=== PATIENT | female | born 1975 | race Caucasian/White ===

== ENCOUNTER → 2018-01-09 | Outpatient (CLI) | payer BC ==
--- NOTE | 2018-01-12 08:22 | MM ---
Reason for exam: screening (asymptomatic). Last mammogram was performed 1 year and 9 months ago. Physical Findings: A clinical breast exam by your physician is recommended on an annual basis and results should be correlated with mammographic findings. MG Screening Mammo w CAD Bilateral CC and MLO view(s) were taken. Prior study comparison: April 19, 2016, bilateral MG screening mammo w CAD. July 29, 2014, bilateral MG screening mammo w CAD. The breast tissue is heterogeneously dense. This may lower the sensitivity of mammography. Finding: There are typically benign round, regional calcifications in the right breast. There is no discrete abnormality. ASSESSMENT: Benign, BI-RAD 2 RECOMMENDATION: Routine screening mammogram of both breasts in 1 year.
== END | disposition home or self-care (01) ==
LOC: RADMAMWWP 08:57
PROVIDERS: ATTEND Obstetrics & Gynecology
DX: Z12.31 Encounter for screening mammogram for malignant neoplasm of breast (principal)
CPT/HCPCS: 77067

== ENCOUNTER → 2019-03-03 | Outpatient (CLI) | payer BC ==
--- NOTE | 2019-03-05 08:25 | MM ---
Reason for exam: screening (asymptomatic). Last mammogram was performed 1 year and 2 months ago. Physical Findings: A clinical breast exam by your physician is recommended on an annual basis and results should be correlated with mammographic findings. MG Screening Mammo w CAD Bilateral CC and MLO view(s) were taken. Prior study comparison: January 09, 2018, bilateral MG screening mammo w CAD. April 19, 2016, bilateral MG screening mammo w CAD. The breast tissue is heterogeneously dense. This may lower the sensitivity of mammography. Regional punctate calcifications persist in the subareolar regions. No significant changes when compared with prior studies. ASSESSMENT: Benign, BI-RAD 2 RECOMMENDATION: Routine screening mammogram of both breasts in 1 year.
== END | disposition home or self-care (01) ==
LOC: RADMAMWWP 13:34
PROVIDERS: ATTEND Obstetrics & Gynecology
DX: Z12.31 Encounter for screening mammogram for malignant neoplasm of breast (principal)
CPT/HCPCS: 77067

== ENCOUNTER → 2020-10-12 | Outpatient (CLI) | payer BC ==
--- NOTE | 2020-10-12 13:12 | CT ---
EXAMINATION TYPE: CT shoulder LT wo con DATE OF EXAM: 10/12/2020 COMPARISON: None. HISTORY: Left shoulder pain. Displaced fracture greater tuberosity minimally. CT DLP: 396.4 mGycmCT left shoulder without contrast. Automated exposure control for dose reduction was used. FINDINGS: Acute comminuted minimally displaced fracture through the femoral head is confirmed with fracture moriah e involving the greater tuberosity. No significant displacement or abnormal angulation. Glenohumeral joint is maintained. Acromioclavicular joint both within normal limits. Distal acromion morphology unremarkable. Rotator cuff muscle bulk preserved. Visualized ribs are intact. Visualized left lung is clear. IMPRESSION: As above.
== END | disposition home or self-care (01) ==
LOC: RADCTMAIN 11:39
PROVIDERS: ATTEND Orthopaedic Surgery
DX: S72.052A Unspecified fracture of head of left femur, initial encounter for closed fracture (principal)

== ENCOUNTER 2022-05-29 12:15 | Emergency (ER) | payer BC ==
[2022-05-29 12:19] VITALS: TEMP 97.9
[2022-05-29] MEDS ORDERED: FAMOTIDINE 20 MG TAB PO STA (12:51)
[2022-05-29] MEDS ORDERED: methylPREDNISolone SOD SUCCI 125 MG/2 ML VIAL IM ONE (12:51)
[2022-05-29 13:18] LABS: Glucose,Whole Blood 91 mg/dL (70-110)
--- NOTE | 2022-05-29 13:38 | ED ---
General Adult HPI - General Chief complaint: Allergic Reaction Stated complaint: Face swelling Time Seen by Provider: 05/29/22 12:20 Source: patient, RN notes reviewed, old records reviewed Mode of arrival: ambulatory Limitations: no limitations - History of Present Illness Initial comments: Patient is a 46-year-old female with past medical history that is unremarkable presents emergency Department complaining of a mild ALLERGIC reaction. At approximately 7 AM this morning, patient began having swelling on the left side of her mouth. Occurred in both lips. Uncertain what caused it. Took 2 Benadryl. Swelling improved. Denies any difficulty swallowing or breathing. Denies stridor. She states she was having some "tingling" sensation isolated to the left side of her face since the Benadryl was taken and the swelling has gone down. Was sent here by her physician for further evaluation. Denies any weakness. Denies any other acute complaints. Takes no medications. Does not take any MESHA inhibitor's. Swelling is improved.Patient is concerned for possible stroke. Was sent here for CT brain. - Related Data Allergies Allergy/AdvReac Type Severity Reaction Status Date / Time acetaminophen [From Lortab] Allergy Chest Pain Verified 05/29/22 12:19 hydrocodone [From Lortab] Allergy Chest Pain Verified 05/29/22 12:19 Review of Systems ROS Statement: Those systems with pertinent positive or pertinent negative responses have been documented in the HPI. Review of Systems: CONST: Denies fever EYES: Denies blurry vision ENT: Denies nasal congestion C/V: Denies Chest pain RESP: Denies shortness of breath GI: Denies abdominal pain : Denies dysuria SKIN: Denies rash. MSK: Denies joint pain. NEURO: Denies headache ROS Other: All systems not noted in ROS Statement are negative. Past Medical History Past Medical History: Asthma History of Any Multi-Drug Resistant Organisms: None Reported Past Surgical History: Tonsillectomy Additional Past Surgical History / Comment(s): Tubal, Past Psychological History: No Psychological Hx Reported Smoking Status: Never smoker Past Alcohol Use History: None Reported Past Drug Use History: None Reported General Exam - General Exam Comments Initial Comments: General: Appears in no acute distress. HEAD: Normal with no signs of head trauma. EYES: PERRLA, EOMI, conjunctiva normal, no discharge. Pupils are 3 mm and equal bilaterally. ENT: Hearing grossly intact, normal oropharynx. No stridor. RESPIRATORY: Clear breath sounds bilaterally. No wheezes, rales, or rhonchi. C/V: Regular rate and rhythm. S1 and S2 auscultated, no edema, peripheral pulses 2+ and intact throughout ABD: Abd is soft, nontender, nondistended EXT: Normal range of motion, no obvious deformity SKIN: No rashes or lesions observed on exposed skin. No facial swelling. NEURO: Alert and oriented x 4. Cranial nerves II-XII intact. No focal sensory or strength deficits. NIH is 0. GCS of 15. Ambulatory without difficulty. Limitations: no limitations Course Vital Signs 05/29/22 05/29/22 12:16 15:11 Temperature 97.9 F Pulse Rate 74 91 Respiratory 20 15 Rate Blood Pressure 149/69 125/77 O2 Sat by Pulse 100 99 Oximetry Medical Decision Making - Medical Decision Making Based on the patient's presentation and physical exam, I do believe she likely experiencing a mild ALLERGIC reaction earlier which has since resolved. However I did offer her famotidine and steroids which she accepted. As for the patient's neurological complaints, NIH is 0. She has subjective paresthesias over the left face. No other complaints. Discussed the unlikelihood of her having a stroke. However she was sent for likely CT brain by her PCP. We will obtain a CT brain I do not believe that she requires any further workup at this time. We will also obtain a primary care blood glucose. Patient was in agreement this plan. Point of care blood glucose is within normal limits. Brain CT shows no acute intercranial hemorrhage or process, however vascular substructure are somewhat dense. Could be secondary to dehydration. I spoke with radiology and they recommended to CTA. I spoke the patient was in agreement with plan. CTA shows no acute intracranial process. At this time, patient's symptoms are nearly gone. She does endorse mild paresthesias over the left forehead. Nonreproducible. I believe it is safe for her to be discharged home. 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 Unknown allergen this time. We'll monitor symptoms and use Benadryl as needed. I instructed the patient to follow up with their PCP in the next 1-3 days. I explained that the patient should return to the emergency department if they experience any worsening symptoms. Strict return precautions were discussed with the patient. The patient expressed understanding of these instructions. I answered all questions that the patient had. The patient was discharged home in good condition with their prescriptions and follow up information. - Lab Data Lab Results 05/29/22 Range/Units 13:16 POC Glucose (mg/dL) 91 (70-110) mg/dL POC Glu Cigarette Maker ID Na Jim Disposition Clinical Impression: Allergic reaction Disposition: HOME SELF-CARE Condition: Good Instructions (If sedation given, give patient instructions): Allergies (ED) Is patient prescribed a controlled substance at d/c from ED?: No Referrals: Sai Parada DO [Primary Care Provider] - 1-2 days Time of Disposition: 15:05
--- NOTE | 2022-05-29 14:08 | CT ---
EXAMINATION TYPE: CT brain wo con DATE OF EXAM: 05/29/2022 COMPARISON: None HISTORY: Lt facial numbness CT DLP: 1074.4 mGycm. Automated Exposure Control for Dose Reduction was Utilized. TECHNIQUE: CT scan of the head is performed without contrast. FINDINGS: There is no acute intracranial hemorrhage, mass effect, or midline shift identified. The ventricles and sulci are within normal limits in size. The globes are intact and the visualized sin uses are clear. Vascular structures are somewhat associated with saturation CTA [place] IMPRESSION: No acute intracranial hemorrhage, mass effect, or midline shift is seen. Vascular struct ures somewhat dense. Finding could be in the basis of dehydration. CTA [place] recommended to exclude other etiologies.
--- NOTE | 2022-05-29 14:59 | CT ---
EXAMINATION TYPE: CT angio head neck DATE OF EXAM: 05/29/2022 HISTORY: Left sided facial numbness. COMPARISON: CT brain 05/29/2022 CT DLP: 519.1 mGycm. Automated Exposure Control for Dose Reduction was Utilized. TECHNIQUE: CTA scan of the head and neck is performed with IV Contrast, patient injected with 65ml m L of Isovue 370, axial images are obtained, coronal and sagittal reformatted images are reviewed. 3D reconstructed images are created on an independent workstation and reviewed. FINDINGS: Carotid/Vascular Structures: Normal right vertebral artery is dominant Other: No significant abnormality. IMPRESSION: No significant abnormality is seen. NASCET criteria was used in interpretation of this exam?
[2022-05-29 15:12] VITALS: BP 125/77; PULSE 91; RESP 15
== END 2022-05-29 15:12 | disposition home or self-care (01) ==
LOC: EC 12:15
DX: R22.0 Localized swelling, mass and lump, head (principal); T78.40XA Allergy, unspecified, initial encounter; J45.909 Unspecified asthma, uncomplicated; Z88.5 Allergy status to narcotic agent; Z88.6 Allergy status to analgesic agent
CPT/HCPCS: 36415; 70496; 70450; 70498; 99283; 96372; J2930; Q9967

== ENCOUNTER → 2023-09-03 | Outpatient (CLI) | payer BC ==
--- NOTE | 2023-09-04 09:52 | MM ---
Reason for Exam: Screening (asymptomatic). Last screening mammogram was performed 11 month(s) ago. Patient History: Menarche at age 11. First Full-Term at age 25. Risk Values: Keturah 5 year model risk: 1.1%. NCI Lifetime model risk: 9.9%. Prior Study Comparison: 04/19/2016 Bilateral Screening Mammogram, [facility]. 01/09/2018 Bilateral Screening Mammogram, [facility]. 03/03/2019 Bilateral Screening Mammogram, [facility]. 09/27/2022 Bilateral Screening Mammogram, [facility]. Tissue Density: The breast tissue is heterogeneously dense. This may lower the sensitivity of mammography. Findings: Analyzed By CAD. Increasing right breast posterior nipple line grouped calcifications. Left breast: There is no suspicious group of microcalcifications or new suspicious mass. Overall Assessment: Incomplete: need additional imaging evaluation, BI-RAD 0 Management: Diagnostic Mammogram of the right breast. [facility] will attempt to contact patient to return for supplemental views and ultrasound if indicated. Patient should continue monthly self-breast exams. A clinical breast exam by your physician is recommended on an annual basis. This exam should not preclude additional follow-up of suspicious palpable abnormalities. Note on Keturah scores and lifetime risk: 1. A Keturah score greater than 3% is considered moderate risk. If this is the case, consider specialist referral to assess eligibility for a risk reducing agent. 2. If overall lifetime risk for the development of breast cancer is 20% or higher, the patient may qualify for future screening with alternating mammogram and breast MRI. Electronically signed and approved by: Yang Bledsoe DO
== END | disposition home or self-care (01) ==
LOC: RADMAMWWP 14:38
PROVIDERS: ATTEND Family Medicine
DX: Z12.31 Encounter for screening mammogram for malignant neoplasm of breast (principal)
CPT/HCPCS: 77067

== ENCOUNTER → 2023-09-10 | Outpatient (CLI) | payer BC ==
--- NOTE | 2023-09-10 14:23 | MM ---
Reason for Exam: Additional evaluation requested from abnormal screening. Last screening mammogram was performed less than 1 month ago. Patient History: Menarche at age 11. First Full-Term at age 25. Postmenopausal. Patient has history of breast feeding. Risk Values: Keturah 5 year model risk: 1.1%. NCI Lifetime model risk: 9.9%. Prior Study Comparison: 01/09/2018 Bilateral Screening Mammogram, [facility]. 03/03/2019 Bilateral Screening Mammogram, [facility]. 09/27/2022 Bilateral Screening Mammogram, [facility]. 09/03/2023 Bilateral MG screening mammo w CAD, [facility]. Tissue Density: Right: The breast tissue is heterogeneously dense. This may lower the sensitivity of mammography. Findings: Analyzed By CAD. Group of coarse heterogenous calcifications within the upper outer right breast at anterior to middle depth. Additional scattered surrounding benign-appearing calcifications. Slightly increasing in number from 2021 exam. Overall Assessment: Suspicious, BI-RAD 4 Management: Stereotactic Core Biopsy of the right breast. A clinical breast exam by your physician is recommended on an annual basis and results should be correlated with mammographic findings. This exam should not preclude additional follow-up of suspicious palpable abnormalities. Results were given to the patient verbally at the time of exam. Note on Keturah scores and lifetime risk: 1. A Keturah score greater than 3% is considered moderate risk. If this is the case, consider specialist referral to assess eligibility for a risk reducing agent. If overall lifetime risk for the development of breast cancer is 20% or higher, the patient may qualify for future screening with alternating mammogram and breast MRI. Electronically signed and approved by: Gama Billingsley D.O.
== END | disposition home or self-care (01) ==
LOC: RADMAMWWP 13:40
PROVIDERS: ATTEND Family Medicine
DX: R92.331 Mammographic heterogeneous density, right breast (principal); Z78.0 Asymptomatic menopausal state
CPT/HCPCS: 77061; 77065

== ENCOUNTER → 2023-10-17 | Day surgery (SDC) | payer BC ==
--- NOTE | 2023-10-17 07:52 | P.GSHP ---
History of Present Illness H&P Date: 10/17/23 Chief Complaint: Abnormal right breast mammogram The patient is a 48-year-old female seen in consultation for Dr. Parada regarding an abnormal right breast mammogram. She underwent a bilateral screening mammogram on 1020 523 this revealed some increasing right breast posterior nipple calcifications. No lesions of concern were seen in the left breast. [place] [address]. Recuperative course heterogeneous calcifications in the upper right breast and anterior middle depth were identified. Recommendation was for a sterotactic core biopsy of the right breast. She does not feel any new lumps masses or nodules of concern in either breast. This was found on a routine screening mammogram. She has never had any surgery on her breast. She is not complaining of any nipple discharge or skin changes. She does not complain of any recent trauma or infection in the breast. She is not complaining of any breast pain. caffiene: 1 can pop/day nicotine: none chocolate: occasional BCP: used for about 13 years stopped in her 20's done for endometriosis hormones: none takes black cohash, aschwaganda for night sweats Family History: maternal grandfather: prostate cancer Hormonal History: menarche: 11 M1 age at first : 23; breast fed: yes menopause: ablation in 2004 in her 's Surgical History: tubaligation tonsil/adenoids uterine ablation bladder suspension Social history: Nicotine: Negative Alcohol: Occasional Drugs: Negative - Constitutional Constitutional: Reports sweats - EENT Eyes: bilateral blurred vision (needs glasses), denies pain Ears: deny: decreased hearing, tinnitus Ears, nose, mouth and throat: Denies headache, Denies sore throat - Breasts Breasts: bilateral: as per HPI - Cardiovascular Cardiovascular: Denies chest pain, Denies shortness of breath - Respiratory Respiratory: Denies cough, Denies 7 - Gastrointestinal Gastrointestinal: Denies abdominal pain, Denies diarrhea, Denies nausea, Denies vomiting - Genitourinary (Female) Genitourinary: Denies dysuria, Denies hematuria - Menstruation Menstruation: Reports as per HPI - Musculoskeletal Musculoskeletal: Denies myalgias - Integumentary Integumentary: Denies pruritus, Denies rash - Neurological Neurological: Denies numbness, Denies weakness - Psychiatric Psychiatric: Denies anxiety, Denies depression - Endocrine Endocrine: Denies fatigue, Denies weight change - Hematologic/Lymphatic Comment: none - Allergic/Immunologic Allergic/Immunologic: Reports seasonal allergies Past Medical History Past Medical History: Asthma Additional Past Medical History / Comment(s): exercise induced asthma History of Any Multi-Drug Resistant Organisms: None Reported Past Surgical History: Tonsillectomy Additional Past Surgical History / Comment(s): Tubal, Past Anesthesia/Blood Transfusion Reactions: No Reported Reaction Past Psychological History: No Psychological Hx Reported Smoking Status: Never smoker Past Alcohol Use History: None Reported Past Drug Use History: None Reported Medications and Allergies Home Medications Medication Instructions Recorded Confirmed Type No Known Home Medications 09/16/23 09/16/23 History Allergies Allergy/AdvReac Type Severity Reaction Status Date / Time acetaminophen [From Lortab] Allergy Chest Pain Verified 09/16/23 14:25 bee venom protein (honey bee) Allergy Anaphylaxis Verified 09/16/23 14:25 hydrocodone [From Lortab] Allergy Chest Pain Verified 09/16/23 14:25 Surgical - Exam - General well developed, well nourished, no distress - Eyes normal ocular movement - ENT no hearing loss - Neck trachea midline - Respiratory normal respiratory effort, clear to auscultation - Cardiovascular Rhythm: regular Heart Sounds: normal: S1, S2 - Abdomen Abdomen: soft, non tender, no guarding, no rigid, no rebound - Integumentary normal turgor - Neurologic no disoriented, no combative - Musculoskeletal normal gait - Psychiatric oriented to time, oriented to person, oriented to place, speech is normal, memory intact Breast Exam: BRA: 36B inspection: bilateral grade 2 ptosis Palpation: Right breast: Multi-positional exam fibrocystic changes no dominant masses or nodules of concern Right axilla: No adenopathy of concern left breast: Multiple positional exam fibrocystic changes no dominant masses or nodules of concern Left axilla: No adenopathy of concern Results Mammogram reviewed in person with Dr. Rolon Assessment and Plan Assessment: Impression: Radiographic abnormality right breast Plan: Right breast stereotactic core biopsy Risk and benefits of the procedure discussed with the patient. Risks include but are not limited to bleeding, infection, reaction to the anesthetic. The patient understands and wishes to proceed. If the biopsy specimen was felt to be discordant and further tissue acquisition may be necessary. CC: Dr. Parada
--- NOTE | 2023-10-17 13:29 | MM ---
Date of Procedure: 10/17/23 Preoperative Diagnosis: Microcalcifications of concern in the right breast Postoperative Diagnosis: same Procedure(s) Performed: Stereotactic core biopsy right breast Anesthesia: local Surgeon: Nusrat Kenyon Pathology: other (Breast tissue/radiographic specimen reveals microcalcification) Condition: stable Disposition: same day Indications for Procedure: Increasing microcalcifications right breast Operative Findings: Radiographic specimen reveals microcalcification Description of Procedure: The patient is a 48-year-old white female underwent a routine screening mammogram was noted to have coarse heterogeneous calcifications within the upper outer right breast anterior middle depth which were increasing slightly since 2021. Stereotactic core biopsy was recommended. The patient was seen and this can benefits of the procedure were discussed with the patient. The patient wished to proceed. The patient was taken to the stereotactic core biopsy wound. She was positioned in an upright chair. A applications tester film was obtained from a CC from above approach. The area of concern was identified. The lesion was targeted. The breast was prepped using chlorhexidine. 20 mL of 1% lidocaine were used to anesthetize the area of concern. A 9-gauge vacuum-assisted core rotating biopsy needle was driven to the correct coordinates. A prefire film was obtained. The needle was noted to be in the correct location. The needle was fired. Posterior film was obtained and the needle was noted to be in the correct location. 13: Biopsy specimens were obtained. Microcalcification was noted and the specimen however it was a course calcification and only one discrete site was noted. It is felt that this was the area of concern which had been sampled. A secure mare Top Hat clip was placed at the area of biopsy. The patient tolerated the procedure in stable condition. She will follow-up with Dr. Bird next week. The specimen was sent to pathology. [facility]
== END ==
LOC: RADMAMWWP 07:15
PROVIDERS: ATTEND Surgery
DX: N60.21 Fibroadenosis of right breast (principal); J45.909 Unspecified asthma, uncomplicated; Z88.5 Allergy status to narcotic agent; Z91.030 Bee allergy status
CPT/HCPCS: 88305; 19081; A4648

== ENCOUNTER → 2023-10-17 | Outpatient (CLI) | payer BC ==
[2023-10-17 07:39] VITALS: BP 109/69; PULSE 62; RESP 18; TEMP 98
--- NOTE | 2023-10-17 08:40 | P.PCN ---
Date of Procedure: 10/17/23 Preoperative Diagnosis: Microcalcifications of concern in the right breast Postoperative Diagnosis: same Procedure(s) Performed: Stereotactic core biopsy right breast Anesthesia: local Surgeon: Nusrat Kenyon Pathology: other (Breast tissue/radiographic specimen reveals microcalcification) Condition: stable Disposition: same day Indications for Procedure: Increasing microcalcifications right breast Operative Findings: Radiographic specimen reveals microcalcification Description of Procedure: The patient is a 48-year-old white female underwent a routine screening mammogram was noted to have coarse heterogeneous calcifications within the upper outer right breast anterior middle depth which were increasing slightly since 2021. Stereotactic core biopsy was recommended. The patient was seen and this can benefits of the procedure were discussed with the patient. The patient wished to proceed. The patient was taken to the stereotactic core biopsy wound. She was positioned in an upright chair. A precision lathe operator film was obtained from a CC from above approach. The area of concern was identified. The lesion was targeted. The breast was prepped using chlorhexidine. 20 mL of 1% lidocaine were used to anesthetize the area of concern. A 9-gauge vacuum-assisted core rotating biopsy needle was driven to the correct coordinates. A prefire film was obtained. The needle was noted to be in the correct location. The needle was fired. Posterior film was obtained and the needle was noted to be in the correct location. 13: Biopsy specimens were obtained. Microcalcification was noted and the specimen however it was a course calcification and only one discrete site was noted. It is felt that this was the area of concern which had been sampled. A secure mare Top Hat clip was placed at the area of biopsy. The patient tolerated the procedure in stable condition. She will follow-up with Dr. Bird next week. The specimen was sent to pathology. CC: Dr. Parada
== END ==
LOC: WWCWWP 07:14
PROVIDERS: ATTEND Surgery
DX: R92.0 Mammographic microcalcification found on diagnostic imaging of breast (principal); Z88.5 Allergy status to narcotic agent; Z91.030 Bee allergy status; Z88.6 Allergy status to analgesic agent

== ENCOUNTER → 2023-10-22 | Outpatient (CLI) | payer BC ==
[2023-10-22 13:41] VITALS: BP 110/73; PULSE 62; RESP 17; TEMP 97.8
--- NOTE | 2023-10-22 13:59 | P.PN ---
Subjective Progress Note Date: 10/22/23 Principal diagnosis: fibrocystic breast disease Keena is a 48 year old female status post stero biopsy on 10-17-23. Her pathology was benign specific. This was reviewed with Dr. Desouza. She tolerated the procedure without difficulty. She does have some mild ecchymosis at the site. Objective - Vital Signs Vital signs: Vital Signs Temp 97.8 F 10/22/23 13:36 Pulse 62 10/22/23 13:36 Resp 17 10/22/23 13:36 BP 110/73 10/22/23 13:36 Pulse Ox 99 10/22/23 13:36 FiO2 Intake & Output 10/21/23 10/22/23 10/22/23 18:59 06:59 18:59 Weight 68.039 kg - Constitutional General appearance: Present: cooperative - EENT Eyes: Present: EOMI ENT: Present: hearing grossly normal - Neck Neck: Present: normal ROM - Respiratory Respiratory: bilateral: CTA - Cardiovascular Rhythm: regular Heart sounds: normal: S1, S2 - Integumentary Integumentary Comment(s): right breast: area of ecchymosis at the biopsy site with a small hematoma no evidence of infection Assessment and Plan Assessment: Pressure: Fibrocystic breast disease recent right breast stereotactic core biopsy benign and concordant Plan: Right breast mammogram in 6 months with examination at that time CC: Dr. Parada
== END ==
LOC: WWCWWP 12:56
PROVIDERS: ATTEND Surgery
DX: N60.19 Diffuse cystic mastopathy of unspecified breast (principal); Z88.5 Allergy status to narcotic agent; Z91.030 Bee allergy status; Z88.6 Allergy status to analgesic agent

== ENCOUNTER 2024-02-13 10:23 | Day surgery (SDC) | payer BC ==
[2024-02-13] MEDS ORDERED: LIDOCAINE 1% (10MG/ML) FOR IV START INTRADERMA PRN (10:38)
[2024-02-13] MEDS ORDERED: LACTATED RINGERS 1,000 ML IV SCH (10:38)
[2024-02-13] MEDS: LACTATED RINGERS 1,000 ML IV SCH (11:02)
[2024-02-13 11:31] VITALS: TEMP 97.7
[2024-02-13] MEDS ORDERED: PROPOFOL 10 MG/ML 20 ML VIAL IV ONE (11:38)
--- NOTE | 2024-02-13 11:51 | P.PCN ---
Date of Procedure: 02/13/24 Procedure(s) Performed: BRIEF HISTORY: Patient is a 48-year-old pleasant White female scheduled for an elective colonoscopy as a part of Screening for colon cancer. PROCEDURE PERFORMED: Colonoscopy. PREOPERATIVE DIAGNOSIS: Screening for colon cancer IV sedation per Anesthesia. PROCEDURE: After informed consent was obtained, the patient, was brought into the endoscopy unit. IV sedation was administered by Anesthesia under continuous monitoring. Digital rectal examination was normal. Initially the Olympus CF-160 flexible video colonoscope was then inserted in the rectum, gradually advanced into the cecum without any difficulty. Careful examination was performed as the scope was gradually being withdrawn. Ileocecal valve and the appendiceal orifice were visualized and appeared normal. Prep was excellent. Mucosa of the cecum, ascending colon, transverse colon, descending colon, sigmoid colon, and rectum appeared normal. Retroflexion was performed in the rectum and no lesions were seen. The patient tolerated the procedure well. IMPRESSION: Normal-appearing colon from rectum to cecum with no evidence of colorectal neoplasia. RECOMMENDATIONS: Findings of this examination were discussed with the patient as well as a family. She was advised to have a repeat screening colonoscopy in 10 years.
[2024-02-13 12:54] VITALS: BP 102/65; PULSE 56; RESP 18
== END 2024-02-13 12:40 | disposition home or self-care (01) ==
LOC: ORWHC2ENDO 10:23
PROVIDERS: ATTEND Internal Medicine Gastroenterology
DX: Z12.11 Encounter for screening for malignant neoplasm of colon (principal); J45.990 Exercise induced bronchospasm; Z79.899 Other long term (current) drug therapy; Z91.030 Bee allergy status; Z88.5 Allergy status to narcotic agent; Z88.6 Allergy status to analgesic agent
CPT/HCPCS: 81025; 45378; J2704

== ENCOUNTER → 2024-04-28 | Outpatient (CLI) | payer BC ==
--- NOTE | 2024-04-29 12:10 | MM ---
Reason for Exam: Follow-up at short interval from prior study. Last screening mammogram was performed 8 month(s) ago. Patient History: Menarche at age 11. First Full-Term at age 25. Postmenopausal. Patient has history of breast feeding. 10/17/2023, Benign MG stereo VAD BX RT on the right side. Risk Values: Keturah 5 year model risk: 1.3%. NCI Lifetime model risk: 11.6%. Tissue Density: Right: The breasts are heterogeneously dense, which may obscure small masses. Findings: Analyzed By CAD. Sampled the retroareolar calcifications are redemonstrated. No suspicious clusters seen. No mass or distortion. Overall Assessment: Benign, BI-RAD 2 Management: Screening Mammogram of both breasts in 6 months. . Results were given to the patient verbally at the time of exam. Patient should continue monthly self-breast exams. A clinical breast exam by your physician is recommended on an annual basis. This exam should not preclude additional follow-up of suspicious palpable abnormalities. Note on Keturah scores and lifetime risk: 1. A Keturah score greater than 3% is considered moderate risk. If this is the case, consider specialist referral to assess eligibility for a risk reducing agent. 2. If overall lifetime risk for the development of breast cancer is 20% or higher, the patient may qualify for future screening with alternating mammogram and breast MRI. Electronically signed and approved by: Zev Richard M.D. Radiologis
== END | disposition home or self-care (01) ==
LOC: RADMAMWWP 14:06
PROVIDERS: ATTEND Surgery
DX: R92.331 Mammographic heterogeneous density, right breast (principal); R92.8 Other abnormal and inconclusive findings on diagnostic imaging of breast; Z78.0 Asymptomatic menopausal state
CPT/HCPCS: 77061; 77065

== ENCOUNTER → 2025-02-01 | Outpatient (CLI) | payer BC ==
--- NOTE | 2025-02-01 08:51 | MM ---
Reason for Exam: Screening (asymptomatic). Last mammogram was performed 1 year(s) and 5 month(s) ago. Patient History: Menarche at age 11. First Full-Term at age 25. Postmenopausal. Patient has history of breast feeding. 10/17/2023, Benign MG stereo VAD BX RT on the right side. Risk Values: Keturah 5 year model risk: 1.3%. NCI Lifetime model risk: 11.4%. Prior Study Comparison: 09/03/2023 Bilateral MG screening mammo w CAD, [facility]. 09/10/2023 Right MG 3D work up w/cad RT, [facility]. 04/28/2024 Right MG 3D diag mammo w/cad RT, [facility]. Tissue Density: The breasts are heterogeneously dense, which may obscure small masses. Findings: Analyzed By CAD. Surgical biopsy changes involving some). There are stable benign-appearing calcifications. No evidence of focal mass. Overall Assessment: Benign, BI-RAD 2 Management: Screening Mammogram of both breasts in 1 year. . Patient should continue monthly self-breast exams. A clinical breast exam by your physician is recommended on an annual basis. This exam should not preclude additional follow-up of suspicious palpable abnormalities. Note on Keturah scores and lifetime risk: 1. A Keturah score greater than 3% is considered moderate risk. If this is the case, consider specialist referral to assess eligibility for a risk reducing agent. 2. If overall lifetime risk for the development of breast cancer is 20% or higher, the patient may qualify for future screening with alternating mammogram and breast MRI. [facility], , 02/01/2025 8:48 AM. Electronically signed and approved by: Jose Daniel Mcdonald M.D. Radiologis
== END | disposition home or self-care (01) ==
LOC: RADMAMWWP 08:20
PROVIDERS: ATTEND Family Medicine
DX: Z12.31 Encounter for screening mammogram for malignant neoplasm of breast (principal); R92.333 Mammographic heterogeneous density, bilateral breasts; R92.1 Mammographic calcification found on diagnostic imaging of breast; Z78.0 Asymptomatic menopausal state
CPT/HCPCS: 77063; 77067